=== PATIENT | male | born 1960 | race Caucasian/White ===

== ENCOUNTER 2024-08-03 10:25 | Emergency (ER) | payer OTHER, SELFPAY ==
--- NOTE | ~2024-08-03 | XR_ITS ---
XR chest 1V portable Ordering provider: Asher Ware MD History: 63 years Male with . COPD exacerbation,SOB,DYSPNEA . Comparison: None. FINDINGS: MEDIASTINUM: The cardiac silhouette is not enlarged. LUNGS: No infiltrates, effusions or pneumothorax. OTHER: No free air under the diaphragm. Healing fracture in the left sixth rib. IMPRESSION: No acute cardiopulmonary pathology. Reviewed, dictated and finalized at location A. [facility] [employer] [facility]
[2024-08-03 10:32] VITALS: BP 159/87; PULSE 98; RESP 22; TEMP 36.9; O2SAT 96
--- NOTE | 2024-08-03 10:36 | ED_ITS ---
HPI - URI/Sore Throat General Chief Complaint: Upper Respiratory Infection Stated Complaint: cough, congestion Time Seen by Provider: 08/03/24 10:36 Source: patient Mode of arrival: ambulatory Limitations: no limitations History of Present Illness HPI Narrative: 63-year-old male with a history of smoking( X half a pack), negative stress test, neck aneurysm rupture status post repair,COPD presents to the ED with a 2 day history of -- worsening shortness of breath -- cough which is nonproductive -- headache -- back pain secondary to increased work of breathing no fever or chills no chest pain MD elicited complaint: cough and nasal congestion Pertinent past history: COPD Onset (ago): day(s) ( few days) Consistency: constant Able to tolerate fluids by mouth: No Exacerbating factors: nothing Relieving factors: nothing Associated symptoms: headache, nasal congestion, cough and shortness of breath Treatments prior to arrival: none Related Data Home Medications ?Medication ?Instructions ?Recorded ?Confirmed ?Last Taken ?Type fluticasone furoate 200 1 inh inhalation DAILY 08/03/24 08/03/24 Unknown History mcg/actuation blister powder for inhalation (Arnuity Ellipta) Allergies Allergy/AdvReac Type Severity Reaction Status Date / Time amitriptyline Allergy Mild Hives Verified 08/03/24 11:00 cephalexin Allergy Mild hive Verified 08/03/24 11:00 Review of Systems 2 Review of Systems: All systems reviewed & are unremarkable except as noted in HPI and below Constitutional: Constitutional: Reports as per HPI, Reports no additional constitutional complaints and Reports fatigue Eyes: Eyes: Reports as per HPI and Reports no additional eye complaints ENT: Reports system reviewed and no additional complaints, except as documented and Reports as per HPI Cardiovascular: Cardiovascular: Reports as per HPI and Reports no additional cardiovascular complaints Respiratory: Respiratory: Reports as per HPI, Reports no additional respiratory complaints, Reports cough and Reports dyspnea Gastrointestinal: Gastrointestinal: Reports as per HPI and Reports no additional gastrointestinal complaints Genitourinary: Genitourinary: Reports no additional male genitourinary complaints Musculoskeletal: Musculoskeletal: Reports no additional musculoskeletal complaints, Reports as per HPI and Reports back pain Integumentary/Breasts: Skin/Breast: Reports system reviewed and no additional complaints, except as docu and Reports as per HPI Neurologic: Reports system reviewed and no additional complaints, except as documented and Reports as per HPI Psychiatric: Psychiatric: Reports no additional psychiatric complaints and Reports as per HPI Endocrine: Endocrine: Reports no additional endocrine complaints and Reports as per HPI Hematologic/Lymphatic: Hematologic/Lymphatic: Reports no additional hematologic/lymphatic complaints and Reports as per HPI Allergic/Immunologic: Allergic/Immunologic: Reports no additional allergic/immunologic complaints and Reports as per HPI [facility] Social History Social History (Updated 08/03/24 @ 10:56 by Asher Ware MD) Social History: smoker of a pack a day for 50 years Smoking packs per day: 0.5 Smoking cigarettes per day: 10.0 Years smoked: 50 Smoking pack-years: 25.00 Smoking status: Current every day smoker Tobacco type: cigarettes Exam 2 Narrative: respiratory rate of 22. Oxygen saturation at 96% on room air Const: Nutritional Appearance: thin Orientation/consciousness: patient oriented x3 Limitations: no limitations HENMT: Head: normal to inspection Ears: external ears normal F isidro/Nose/Sinus: Normal external nose present Face and sinus: normal facial exam Mouth: Yes Normal oral and palatal mucosa present Throat: posterior oropharynx normal Eyes: Conjunctivae: conjunctivae normal Pupils: Equal, round and reactive pupils present EOM: EOMs intact bilaterally Direct Ophthalmoscopy: no photophobia Neck: Neck: normal visual inspection, no lymphadenopathy and no meningeal signs Chest: Chest palpation & inspection: normal inspection of the chest Resp: Effort & Inspection: tachypneic Auscultation: wheezes and diminished lung sounds Cardio: Rate: regular rate Rhythm: regular rhythm GI: GI Palp: Yes Soft to palpation Auscultation: normal bowel sounds O ther: no tenderness/ rigidity /rebound. : General: Yes no CVA tenderness Back/Spine/Pelvis: Back: no CVA tenderness Skin: General skin exam: normal color Rashes: no rashes Wounds: no wounds Neuro: General: patient oriented x3, moves all extremities, no meningeal signs, no focal motor deficits and CN's II-XI intact bilaterally Cranial nerves: Yes Nystagmus not present Speech: normal speech Gait exam (Neuro): Normal gait present Extrem: General: normal to inspection and no clubbing, cyanosis or edema Psych: Mental Status: mental status grossly normal Affect: normal affect Course Course Emergency Course: COPD exacerbation-- chest x-ray did not show any infiltrates evidence of CHF. The patient was noted to have a normal white cell count. The patient had negative RSV/influenza / COVID. Will treat with steroids bronchodilators and Zithromax. Vital Signs Vital signs: Vital Signs Temperature 36.9 C 08/03/24 10:32 Pulse Rate 98 08/03/24 10:32 Respiratory Rate 22 H 08/03/24 10:32 Blood Pressure 159/87 H 08/03/24 10:32 Pulse Oximetry 96 08/03/24 10:32 Oxygen Delivery Room Air 08/03/24 10:32 Temperature 36.9 C 08/03/24 10:32 Pulse Rate 69 08/03/24 10:59 Respiratory Rate 20 08/03/24 10:59 Blood Pressure 159/87 H 08/03/24 10:32 Pulse Oximetry 98 08/03/24 10:59 Oxygen Delivery Room Air 08/03/24 10:55 MDM - URI/Sore Throat MDM Narrative Medical decision making narrative: COPD exacerbation Differential Diagnosis Differential diagnosis: Likely upper respiratory infection, viral infection and bronchitis Medical Records Attestation: I reviewed the patient's medical records. Lab Data Attestation: I reviewed the patient's lab results. 08/03/24 10:53 08/03/24 10:53 Labs: Lab Results 08/03/24 Range/Units 10:53 WBC 6.0 (4.8-10.8) K/mm3 RBC 5.68 (4.70-6.10) M/mm3 Hgb 18.3 H (14.0-18.0) g/dL Hct 51.2 (40.0-54.0) % MCV 90.1 (78.0-102.0) fL MCH 32.2 H (27.0-31.0) pg MCHC 35.7 (32-36) g/dL RDW 12.5 (11.6-14.4) % Plt Count 172 (150-420) K/mm3 MPV 8.9 (8.7-11.0) fl Immature Gran % (Auto) 0.5 H (0.0-0.0) % Neut % (Auto) 78.5 H (50.0-70.0) % Lymph % (Auto) 7.3 L (18.0-42.0) % Cannon % (Auto) 12.7 H (2.0-11.0) % Eos % (Auto) 0.5 L (1.0-6.0) % Baso % (Auto) 0.5 (0.0-1.0) % Lymph # (Auto) 0.44 L (1.10-4.50) K/mm3 Cannon # (Auto) 0.76 (0.10-0.90) K/mm3 Eos # (Auto) 0.03 (0.02-0.50) K/mm3 Baso # (Auto) 0.03 (0.00-0.10) K/mm3 Abs Immat Gran (auto) 0.03 H (0.00-0.00) K/mm3 Absolute Neuts (auto) 4.71 (1.70-7.20) K/mm3 Absolute Nucleated RBC 0.00 (0.00-0.00) K/mm3 Nucleated RBC % 0.0 (0-0.0) % PT 10.7 (9.50-12.1) Seconds INR 1.0 APTT 29.9 (23.9-30.70) Sec Sodium 135 L (136-145) mmol/L Potassium 4.5 (3.5-5.1) mmol/L Chloride 97 L (98-108) mmol/L Carbon Dioxide 29 (21-32) mmol/L Anion Gap 9 (4-12) mmol/L BUN 12 (7-18) mg/dL Creatinine 1.00 (0.70-1.30) mg/dL Estim Creat Clear Calc 57 ml/min Estimated GFR > 60 (59 - ) Glucose 91 (70-99) mg/dL Calculated Osmolality 279 L (285-295) mOsm/kg Lactic Acid 0.8 (0.4-2.0) mmol/L Calcium 8.9 (8.5-10.1) mg/dL Total Bilirubin 0.7 (0.00-1.00) mg/dL AST 30 (15-37) U/L ALT 35 (16-63) U/L Alkaline Phosphatase 80 (46-116) U/L Troponin I 7.0 (0.00-60.4) ng/L NT-Pro-B Natriuret Pep 53 (0-125) pg/mL Total Protein 7.7 (6.4-8.2) g/dL Albumin 4.1 (3.4-5.0) g/dL Influenza A (RT-PCR) Negative (Negative) Influenza B (RT-PCR) Negative (Negative) RSV (RT-PCR) Negative (Negative) SARS-CoV-2 RNA (RT-PCR) Negative (Negative) Discharge Plan Discharge Clinical Impression: COPD exacerbation Patient Disposition: Home, Self-Care Condition: Stable Instructions: Antibiotic Form, Chronic Lung Disease and Infection Prevention (ED) Patient Language: Frisian Prescriptions: New azithromycin [Zithromax] 250 mg tablet See Rx Instructions .ROUTE .COMPLEX Qty: 6 0RF Rx Instructions: For 250 mg dose pack: take 500 mg today (day 1), then 250 mg for 4 days (days 2-5) prednisone 20 mg tablet 20 mg PO BID Qty: 7 0RF albuterol sulfate 90 mcg/actuation HFA aerosol inhaler 2 puff inhalation QID PRN (Reason: shortness of breath or wheezing) Qty: 8.5 0RF No Action Arnuity Ellipta 200 mcg/actuation blister with device 1 inh inhalation DAILY Follow-up/Referrals: UNKNOWN,DOCTOR [Non-Staff] - Time of Disposition: 11:48
--- NOTE | 2024-08-03 10:44 | ECG_ITS ---
Test Date: 2024-08-03 11:09:53 Measurements Intervals [place] Rate: 78 P: 59 [place]: 158 QRS: 87 QRSD: 97 T: 74 QT: 338 QTc: 387 Interpretive Statements SINUS RHYTHM No previous ECG available for comparison Electronically Signed On 08-03-2024 15:47:46 PNEUMATIC TOOL REPAIRER by Cheo Noland M.D.
[2024-08-03] MEDS: methylPREDNISolone SOD SUCC 125 MG VIAL IM (10:48)
--- NOTE | 2024-08-03 10:51 | PC.NURSE ---
Covid culture sent to lab
[2024-08-03 10:53] VITALS: PULSE 73; RESP 20; O2SAT 95
[2024-08-03] MEDS: IPRATROPIUM 0.5 MG/ALBUTEROL SULFATE 2.5 MG AMPUL.NEB 3 ML INHALATION (10:55)
[2024-08-03 10:57] LABS: Basophils Absolute Auto 0.03 K/mm3 (0.00-0.10); Basophils Percent Auto 0.5 % (0.0-1.0); Eosinophils Absolute Auto 0.03 K/mm3 (0.02-0.50); Eosinophils Percent Auto 0.5 % (1.0-6.0); Hematocrit 51.2 % (40.0-54.0); Hemoglobin 18.3 g/dL (14.0-18.0); Immature Granulocyte Absolute 0.03 K/mm3 (0.00-0.00); Immature Granulocyte Percent A 0.5 % (0.0-0.0); Lymphocytes Absolute Auto 0.44 K/mm3 (1.10-4.50); Lymphocytes Percent Auto 7.3 % (18.0-42.0); Mean Corpuscular HGB Conc 35.7 g/dL (32-36); Mean Corpuscular Hemoglobin 32.2 pg (27.0-31.0); Mean Corpuscular Volume 90.1 fL (78.0-102.0); Mean Platelet Volume 8.9 fl (8.7-11.0); Monocytes Absolute Auto 0.76 K/mm3 (0.10-0.90); Monocytes Percent Auto 12.7 % (2.0-11.0); Neutrophils Absolute Auto 4.71 K/mm3 (1.70-7.20); Neutrophils Percent Auto 78.5 % (50.0-70.0); Platelet Count Result 172 K/mm3 (150-420); Red Blood Count 5.68 M/mm3 (4.70-6.10); Red Cell Distribution Width 12.5 % (11.6-14.4)
[2024-08-03 10:59] VITALS: PULSE 69; RESP 20; O2SAT 98
[2024-08-03 11:16] LABS: Partial Thromboplastin Time 29.9 Sec (23.9-30.70); Prothrombin Time 10.7 Seconds (9.50-12.1)
[2024-08-03 11:18] LABS: Lactic Acid Reflex 0.8 mmol/L (0.4-2.0)
[2024-08-03 11:32] LABS: SARS-CoV-2 RNA PCR Negative (Negative)
[2024-08-03 11:35] LABS: Influenza A QL RT-PCR Negative (Negative); Influenza B QL RT-PCR Negative (Negative); RSV RNA, RT-PCR Negative (Negative)
[2024-08-03 11:38] LABS: Alanine Aminotransferase 35 U/L (16-63); Albumin Level 4.1 g/dL (3.4-5.0); Alkaline Phosphatase 80 U/L (46-116); Anion Gap 9 mmol/L (4-12); Aspartate Amino Transferase 30 U/L (15-37); Bilirubin,Total 0.7 mg/dL (0.00-1.00); Blood Urea Nitrogen 12 mg/dL (7-18); Calcium 8.9 mg/dL (8.5-10.1); Carbon Dioxide 29 mmol/L (21-32); Chloride 97 mmol/L (98-108); Estimated CRCL calculation 57 ml/min; Estimated Glomerular Filt Rate > 60; Glucose 91 mg/dL (70-99); NT Pro B Type Natriuretic Pept 53 pg/mL (0-125); Osmolality Calculated 279 mOsm/kg (285-295); Potassium 4.5 mmol/L (3.5-5.1); Sodium 135 mmol/L (136-145); Total Protein 7.7 g/dL (6.4-8.2)
[2024-08-03 11:49] VITALS: BP 126/74; PULSE 93; RESP 20; TEMP 36.8; O2SAT 92
== END 2024-08-03 11:57 | disposition home or self-care (01) ==
PROVIDERS: Emergency Provider Internal Medicine Critical Care Medicine; PCP Internal Medicine Infectious Disease
DX: J44.1 Chronic obstructive pulmonary disease with (acute) exacerbation (principal); Z20.822 Contact with and (suspected) exposure to COVID-19; F17.210 Nicotine dependence, cigarettes, uncomplicated; Z79.51 Long term (current) use of inhaled steroids
CPT/HCPCS: 36415; 71045; 80053; 83605; 83880; 84484; 85025; 85610; 85730; 87637; 93005; 94640; 96372; 99283; J2919